=== PATIENT | female | born 1995 | race Caucasian/White ===

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

== ENCOUNTER 2017-05-17 19:52 | Emergency (ER) | payer OTHER ==
[~2017-05-17] VITALS: Ht 162.6 cm; Wt 73.9 kg
[2017-05-17 22:09] VITALS: BP 125/65
== END 2017-05-17 21:45 | disposition home or self-care (01) ==
LOC: ED 19:52
DX: O26.893 Other specified pregnancy related conditions, third trimester (principal); Z3A.27 27 weeks gestation of pregnancy; Z88.8 Allergy status to other drugs, medicaments and biological substances
CPT/HCPCS: 36600

== ENCOUNTER 2017-05-29 00:51 | Emergency (ER) | payer OTHER ==
[~2017-05-29] VITALS: Ht 162.6 cm; Wt 74.8 kg
[2017-05-29 02:23] VITALS: BP 124/72
== END 2017-05-29 02:23 | disposition home or self-care (01) ==
LOC: ED 00:51
DX: O99.513 Diseases of the respiratory system complicating pregnancy, third trimester (principal); J40 Bronchitis, not specified as acute or chronic; Z3A.28 28 weeks gestation of pregnancy
CPT/HCPCS: Q0092

== ENCOUNTER 2018-06-07 22:17 | Emergency (ER) | payer OTHER ==
[~2018-06-07] VITALS: Ht 162.6 cm; Wt 68.7 kg
[2018-06-07 22:34] VITALS: BP 114/61; Ht 162.6 cm; Wt 68.7 kg
== END 2018-06-08 00:25 | disposition home or self-care (01) ==
LOC: ED 22:17
DX: S20.212A Contusion of left front wall of thorax, initial encounter (principal); N39.0 Urinary tract infection, site not specified; Z88.6 Allergy status to analgesic agent; Z90.89 Acquired absence of other organs; W01.0XXA Fall on same level from slipping, tripping and stumbling without subsequent striking against object, initial encounter; Y93.E1 Activity, personal bathing and showering; Y92.091 Bathroom in other non-institutional residence as the place of occurrence of the external cause; Y99.8 Other external cause status
CPT/HCPCS: J1885

== ENCOUNTER 2018-07-25 09:41 | Emergency (ER) | payer OTHER ==
[~2018-07-25] VITALS: Ht 162.6 cm; Wt 68.5 kg
[2018-07-25 09:55] VITALS: Ht 162.6 cm; Wt 68.5 kg
[2018-07-25 11:02] LABS: CALCIUM 8.9 mg/dL (8.5-10.1); CARBON DIOXIDE 27.4 mmol/L (21-32); CHLORIDE SERUM 106 mmol/L (98-107); CREATININE SERUM 0.7 mg/dL (0.6-1.0); GFR1 > 60 mL/min; GLUCOSE SERUM 100 mg/dL (74-106); POTASSIUM SERUM 4.2 mmol/L (3.5-5.1); SODIUM SERUM 140 mmol/L (136-145)
[2018-07-25 11:07] LABS: ALBUMIN 3.8 g/dL (3.4-5.0); ALKALINE PHOSPHATASE 58 U/L (46-116); ALT/SGPT 19 U/L (14-59); AST/SGOT 9 U/L (15-37); PLATELET COUNT 286 x10^3mcL (130-400); T4(THYROXINE) 6.9 ug/dL (4.7-13.3); TOTAL PROTEIN, SERUM 6.9 g/dL (6.4-8.2)
[2018-07-25 11:08] LABS: BASOPHIL % 0.4 % (0-2)
[2018-07-25 11:13] VITALS: BP 134/88
== END 2018-07-25 12:05 | disposition home or self-care (01) ==
LOC: ED 09:41
PROVIDERS: Emergency Medicine
DX: N92.1 Excessive and frequent menstruation with irregular cycle (principal); F17.210 Nicotine dependence, cigarettes, uncomplicated; Z71.6 Tobacco abuse counseling; Z90.89 Acquired absence of other organs; Z88.6 Allergy status to analgesic agent
CPT/HCPCS: 36415; 99406

== ENCOUNTER 2018-08-13 22:40 | Emergency (ER) | payer OTHER ==
[~2018-08-13] VITALS: Ht 162.6 cm; Wt 71.2 kg
[2018-08-13 22:50] VITALS: Ht 162.6 cm; Wt 71.2 kg
[2018-08-14 05:43] VITALS: BP 107/86
== END 2018-08-14 05:43 | disposition home or self-care (01) ==
LOC: ED 22:40
DX: R10.32 Left lower quadrant pain (principal); N93.9 Abnormal uterine and vaginal bleeding, unspecified; Z98.890 Other specified postprocedural states; Z88.8 Allergy status to other drugs, medicaments and biological substances
CPT/HCPCS: J1885